=== PATIENT | female | born 1980 | race Caucasian/White ===

== ENCOUNTER 2017-08-27 09:31 | Inpatient (IN) | payer BC, OTHER ==
[2017-08-27] MEDS ORDERED: OBEPIDURAL* 250 ML EPIDURAL ONE (10:20)
[2017-08-27 10:35] LABS: ABS Basophils 0 10^3/ul (0-0.2); ABS Eosinophils 0 10^3/ul (0-0.6); ABS Lymphocytes 2.4 10^3/ul (1.0-4.8); ABS Monocytes 0.6 10^3/ul (0-0.8); ABS Neutrophils 6.2 10^3/ul (1.5-7.7); ABS Nucleated RBC 0 10^3/ul; Eosinophil % 0.5 % (0-6); Hematocrit 36 % (35-47); Lymphocyte % 25.9 % (25-47); Mean Corpuscular HGB Conc 34 g/dl (31-36); Mean Corpuscular Hemoglobin 29 pg (27-31); Mean Corpuscular Volume 85 fL (80-97); Mean Platelet Volume 9 um3 (7.4-10.4); Nucleated Red Blood Cells % 0; Platelet Count 207 10^3/ul (150-450); Red Blood Count 4.16 10^6/ul (4.0-5.4); Red Cell Distribution Width 14 % (10.5-15); White Blood Count 9.3 10^3/ul (3.5-10.8)
[2017-08-27] MEDS ORDERED: Phenylephrine IV* 40 MCG/ML 10 ML SYRINGE IV PUSH PRN (10:56)
[2017-08-27] MEDS ORDERED: EPHEDrine (Pressors)* 50 MG/ML VIAL IV PUSH PRN (10:56)
[2017-08-27] MEDS ORDERED: Sodium Citrate/Citric Acid* 15 ML UDC PO PRN (10:56)
[2017-08-27] MEDS ORDERED: Famotidine TAB* 20 MG PO PRN (10:56)
[2017-08-27] MEDS ORDERED: OBEPIDURAL* 250 ML EPIDURAL SCH (11:00)
[2017-08-27] MEDS ORDERED: Glycerin ADULT SUPP PR PRN (14:15)
[2017-08-27] MEDS ORDERED: Measles, Mumps,Rubella VACC* 0.5 ML/VIAL SUBCUT ONE (14:15)
[2017-08-27] MEDS ORDERED: Acetaminophen TAB* 325 MG PO PRN (14:15)
[2017-08-27] MEDS ORDERED: Dibucaine 1% 28.35 GM TUBE PR PRN (14:15)
[2017-08-27] MEDS ORDERED: Witch Hazel PAD* JAR TOPICAL PRN (14:15)
[2017-08-27] MEDS: Ibuprofen TAB* 600 MG PO PRN ×2 (14:53→21:45)
[2017-08-27] MEDS ORDERED: Oxytocin in LR* 20 UNITS/1,000 ML BAG IVPB ONE (14:56)
[2017-08-27] MEDS ORDERED: Oxytocin in LR* 20 UNITS/1,000 ML BAG IVPB SCH (15:03)
[2017-08-27] MEDS ORDERED: Misoprostol TAB* 200 MCG PR ONE (15:04)
[2017-08-27] MEDS: Simethicone TAB* 80 MG TAB.CHEW PO SCH ×2 (20:21→20:29)
[2017-08-27] MEDS: Docusate CAP* 100 MG PO SCH (20:29)
[2017-08-28 06:52] LABS: ABS Basophils 0 10^3/ul (0-0.2); ABS Eosinophils 0.1 10^3/ul (0-0.6); ABS Lymphocytes 2.9 10^3/ul (1.0-4.8); ABS Monocytes 0.5 10^3/ul (0-0.8); ABS Neutrophils 5.1 10^3/ul (1.5-7.7); ABS Nucleated RBC 0 10^3/ul; Eosinophil % 1.4 % (0-6); Hematocrit 28 % (35-47); Hemoglobin 9.6 g/dl (12.0-16.0); Lymphocyte % 33.5 % (25-47); Mean Corpuscular HGB Conc 34 g/dl (31-36); Mean Corpuscular Hemoglobin 29 pg (27-31); Mean Corpuscular Volume 86 fL (80-97); Mean Platelet Volume 9 um3 (7.4-10.4); Nucleated Red Blood Cells % 0; Platelet Count 166 10^3/ul (150-450); Red Blood Count 3.28 10^6/ul (4.0-5.4); Red Cell Distribution Width 14 % (10.5-15); White Blood Count 8.6 10^3/ul (3.5-10.8)
[2017-08-28] MEDS: Ibuprofen TAB* 600 MG PO PRN ×2 (07:31→14:50)
[2017-08-28] MEDS: Ferrous Gluconate TAB* 324 MG TAB PO SCH ×2 (09:01→21:18)
[2017-08-28] MEDS: Docusate CAP* 100 MG PO SCH ×3 (09:02→21:18)
[2017-08-29] MEDS: Ibuprofen TAB* 600 MG PO PRN ×2 (02:22→09:25)
[2017-08-29 08:27] VITALS: BP 117/63
[2017-08-29] MEDS: Ferrous Gluconate TAB* 324 MG TAB PO SCH (09:25)
[2017-08-29] MEDS: Docusate CAP* 100 MG PO SCH (09:25)
== END 2017-08-29 13:35 | disposition home or self-care (01) | DRG 560 ==
LOC: MCHOBOUT 09:31 → MCHOB 09:53
PROVIDERS: ADMIT Midwife; ATTEND Midwife
PROC: 10E0XZZ Delivery of Products of Conception, External Approach (ICD-10-PCS; principal; 2017-08-27)
PROC: 4A1HXCZ Monitoring of Products of Conception, Cardiac Rate, External Approach (ICD-10-PCS; 2017-08-27)
DX: O77.0 Labor and delivery complicated by meconium in amniotic fluid (principal); O71.89 Other specified obstetric trauma; Z3A.40 40 weeks gestation of pregnancy; Z37.0 Single live birth; O90.81 Anemia of the puerperium
CPT/HCPCS: 36415; 85025; 86850; 86900; 86901; 87651; A9270-GY

== ENCOUNTER 2018-11-04 13:10 | Emergency (ER) | payer BC ==
[2018-11-04 14:32] LABS: ABS Basophils 0.1 10^3/ul (0-0.2); ABS Eosinophils 0.1 10^3/ul (0-0.6); ABS Lymphocytes 3.2 10^3/ul (1.0-4.8); ABS Monocytes 0.4 10^3/ul (0-0.8); ABS Neutrophils 4.4 10^3/ul (1.5-7.7); ABS Nucleated RBC 0 10^3/ul; Eosinophil % 1.2 %; Hematocrit 35 % (33-41); Hemoglobin 11.9 g/dL (12.0-16.0); Lymphocyte % 39.3 %; Mean Corpuscular HGB Conc 34 g/dL (31-36); Mean Corpuscular Hemoglobin 29 pg (27-31); Mean Corpuscular Volume 87 fL (80-97); Mean Platelet Volume 8.3 fL (7.4-10.4); Nucleated Red Blood Cells % 0; Platelet Count 253 10^3/uL (150-450); Red Blood Count 4.06 10^6 /uL (3.70-4.87); Red Cell Distribution Width 13 % (10.5-15); White Blood Count 8.2 10^3/uL (3.5-10.8)
[2018-11-04 14:53] LABS: ALT 15 U/L (7-52); AST 22 U/L (13-39); Albumin 4.2 g/dL (3.2-5.2); Albumin/Globulin Ratio 1.5 (1-3); Alkaline Phosphatase 71 U/L (34-104); Anion Gap 7 mmol/L (2-11); BUN/Creatinine Ratio 21.9 (8-20); Blood Urea Nitrogen 16 mg/dL (6-24); CO2 Carbon Dioxide 25 mmol/L (22-32); Calcium 9.2 mg/dL (8.6-10.3); Chloride 107 mmol/L (101-111); EGFR African American 107.4 (>60); EGFR Non-African American 88.8 (>60); Globulin 2.8 g/dL (2-4); Glucose 90 mg/dL (70-100); Sodium 139 mmol/L (135-145)
[2018-11-04 14:56] LABS: Troponin I 0.01 ng/mL (<0.04)
[2018-11-04 15:00] LABS: HCG Pregnancy < 0.60 mIU/mL
[2018-11-04 15:49] VITALS: BP 110/75
[2018-11-04 15:57] LABS: INR 0.97 (0.82-1.09)
--- NOTE | 2018-11-05 04:56 | ED ---
Dizziness - HPI Summary HPI Summary: Patient is a 38-year-old otherwise healthy female presents to the ED with an episode of dizziness and weakness was last at approximate 10 seconds. She was driving at this time and pulled over. This dissipated approximately 10 seconds later an acute onset 2/10 headache with ringing to the right ear became present immediately following. This lasted another 30 minutes or so and also dissipated. She continues to have some right ear pain, but this is minimal. Denies any hearing loss bilaterally. She is concerned as she had an episode of anisocoria a few weeks ago. She had followed up with her PCP, however she states "nothing was found." They had not been a CT scan. She is requesting this on today's visit. She currently feels well, is asymptomatic, denies any CPR or SOB. Denies any fevers, sweats, chills. She has not been sick recently. She has no significant past medical history. Denies cardiac hx. She endorses a fam hx of brain tumor/dementia. - History Of Current Complaint Chief Complaint: EDDizziness Stated Complaint: LIGHTHEADED/DIZZINESS/RT SIDED EAR PAIN PER PT Time Seen by Provider: 11/04/18 13:46 Hx Obtained From: Patient Onset/Duration: Still Present Timing: Constant Severity Initially: Mild Severity Currently: Mild Aggravating Factor(s): Nothing Alleviating Factor(s): Nothing Associated Signs And Symptoms: Positive: Negative - Risk Factors Cardiac Risk Factors: Negative CVA Risk Factor: Negative - Allergies/Home Medications Allergies/Adverse Reactions: Allergies Allergy/AdvReac Type Severity Reaction Status Date / Time No Known Allergies Allergy Verified 11/04/18 13:14 Home Medications: Home Medications Norethindrone 0.35 mg PO DAILY 11/04/18 [History Confirmed 11/04/18] PMH/Surg Hx/FS Hx/Imm Hx Previously Healthy: Yes Endocrine/Hematology History: Denies: Hx Diabetes, Hx Thyroid Disease Cardiovascular History: Denies: Hx Hypertension Respiratory History: Denies: Hx Asthma, Hx Chronic Obstructive Pulmonary Disease (COPD) GI History: Denies: Hx Ulcer Psychiatric History: Reports: Hx Depression - Immunization History Hx Pertussis Vaccination: No Immunizations Up to Date: Yes Infectious Disease History: No Infectious Disease History: Denies: Hx Hepatitis, Hx Human Immunodeficiency Virus (HIV), Traveled Outside the [place] in Last 30 Days - Social History Occupation: Employed Full-time Lives: With Family Alcohol Use: None Hx Substance Use: No Substance Use Type: Reports: None Hx Tobacco Use: No Smoking Status (MU): Never Smoked Tobacco Have You Smoked in the Last Year: No Review of Systems Constitutional: Negative Negative: Fever, Chills, Fatigue, Skin Diaphoresis - and was read by Negative: Palpitations, Chest Pain Negative: Shortness Of Breath, Cough Negative: Abdominal Pain, Vomiting, Diarrhea, Nausea Positive: no symptoms reported. Negative: see HPI Negative: Arthralgia, Myalgia Skin: Negative Positive: Headache, Weakness All Other Systems Reviewed And Are Negative: Yes Physical Exam Triage Information Reviewed: Yes Vital Signs On Initial Exam: Initial Vitals Temp Pulse Resp BP Pulse Ox 98.6 F 78 15 132/91 99 11/04/18 13:12 11/04/18 13:12 11/04/18 13:12 11/04/18 13:12 11/04/18 13:12 Vital Signs Reviewed: Yes Appearance: Positive: Well-Appearing, Well-Nourished Skin: Positive: Warm, Skin Color Reflects Adequate Perfusion Head/Face: Positive: Normal Head/Face Inspection Eyes: Positive: EOMI, Conjunctiva Clear Neck: Positive: Supple, No Lymphadenopathy Respiratory/Lung Sounds: Positive: Clear to Auscultation, Breath Sounds Present Cardiovascular: Positive: RRR, Pulses are Symmetrical in both Upper and Lower Extremities Musculoskeletal: Positive: Normal, Strength/ROM Intact Neurological: Positive: Sensory/Motor Intact, Alert, Oriented to Person Place, Time Psychiatric: Positive: Normal, Affect/Mood Appropriate AVPU Assessment: Alert Diagnostics - Vital Signs Vital Signs Temp Pulse Resp BP Pulse Ox 11/04/18 16:08 98.4 F 78 16 110/75 99 11/04/18 15:44 65 15 110/75 98 11/04/18 15:14 65 17 111/71 99 11/04/18 15:00 71 29 99 11/04/18 14:44 65 118/78 98 11/04/18 14:43 65 99 11/04/18 13:12 98.6 F 78 15 132/91 99 - Laboratory Lab Results: Lab Results 11/04/18 11/04/18 11/04/18 Range/Units 14:22 14:22 14:22 WBC 8.2 (3.5-10.8) 10^3/uL RBC 4.06 (3.70-4.87) 10^6 /uL Hgb 11.9 L (12.0-16.0) g/dL Hct 35 (33-41) % MCV 87 (80-97) fL MCH 29 (27-31) pg MCHC 34 (31-36) g/dL RDW 13 (10.5-15) % Plt Count 253 (150-450) 10^3/uL MPV 8.3 (7.4-10.4) fL Neut % (Auto) 54.1 % Lymph % (Auto) 39.3 % [place] % (Auto) 4.5 % Eos % (Auto) 1.2 % Baso % (Auto) 0.9 % Absolute Neuts (auto) 4.4 (1.5-7.7) 10^3/ul Absolute Lymphs (auto) 3.2 (1.0-4.8) 10^3/ul Absolute Monos (auto) 0.4 (0-0.8) 10^3/ul Absolute Eos (auto) 0.1 (0-0.6) 10^3/ul Absolute Basos (auto) 0.1 (0-0.2) 10^3/ul Absolute Nucleated RBC 0 10^3/ul Nucleated RBC % 0 INR (Anticoag Therapy) 0.97 (0.82-1.09) Sodium 139 (135-145) mmol/L Potassium 4.0 (3.5-5.0) mmol/L Chloride 107 (101-111) mmol/L Carbon Dioxide 25 (22-32) mmol/L Anion Gap 7 (2-11) mmol/L BUN 16 (6-24) mg/dL Creatinine 0.73 (0.51-0.95) mg/dL Est GFR ( Amer) 107.4 (>60) Est GFR (Non-Af Amer) 88.8 (>60) BUN/Creatinine Ratio 21.9 H (8-20) Glucose 90 (70-100) mg/dL Lactic Acid (0.5-2.0) mmol/L Calcium 9.2 (8.6-10.3) mg/dL Total Bilirubin 0.30 (0.2-1.0) mg/dL AST 22 (13-39) U/L ALT 15 (7-52) U/L Alkaline Phosphatase 71 (34-104) U/L Troponin I 0.01 (<0.04) ng/mL Total Protein 7.0 (6.4-8.9) g/dL Albumin 4.2 (3.2-5.2) g/dL Globulin 2.8 (2-4) g/dL Albumin/Globulin Ratio 1.5 (1-3) Beta HCG, Quant < 0.60 mIU/mL 11/04/18 Range/Units 14:22 WBC (3.5-10.8) 10^3/uL RBC (3.70-4.87) 10^6 /uL Hgb (12.0-16.0) g/dL Hct (33-41) % MCV (80-97) fL MCH (27-31) pg MCHC (31-36) g/dL RDW (10.5-15) % Plt Count (150-450) 10^3/uL MPV (7.4-10.4) fL Neut % (Auto) % Lymph % (Auto) % [place] % (Auto) % Eos % (Auto) % Baso % (Auto) % Absolute Neuts (auto) (1.5-7.7) 10^3/ul Absolute Lymphs (auto) (1.0-4.8) 10^3/ul Absolute Monos (auto) (0-0.8) 10^3/ul Absolute Eos (auto) (0-0.6) 10^3/ul Absolute Basos (auto) (0-0.2) 10^3/ul Absolute Nucleated RBC 10^3/ul Nucleated RBC % INR (Anticoag Therapy) (0.82-1.09) Sodium (135-145) mmol/L Potassium (3.5-5.0) mmol/L Chloride (101-111) mmol/L Carbon Dioxide (22-32) mmol/L Anion Gap (2-11) mmol/L BUN (6-24) mg/dL Creatinine (0.51-0.95) mg/dL Est GFR ( Amer) (>60) Est GFR (Non-Af Amer) (>60) BUN/Creatinine Ratio (8-20) Glucose (70-100) mg/dL Lactic Acid 0.6 (0.5-2.0) mmol/L Calcium (8.6-10.3) mg/dL Total Bilirubin (0.2-1.0) mg/dL AST (13-39) U/L ALT (7-52) U/L Alkaline Phosphatase (34-104) U/L Troponin I (<0.04) ng/mL Total Protein (6.4-8.9) g/dL Albumin (3.2-5.2) g/dL Globulin (2-4) g/dL Albumin/Globulin Ratio (1-3) Beta HCG, Quant mIU/mL Result Diagrams: 11/04/18 14:22 11/04/18 14:22 Lab Statement: Any lab studies that have been ordered have been reviewed, and results considered in the medical decision making process. Dizzy Course/Dx - Course Course Of Treatment: During the course of treatment, the patient's evaluated for acute onset dizziness and lightheadedness which lasted approximately 10 seconds followed by headache and right ear pain. All symptoms dissipated prior to arrival. She is concerned as she had a episode of Ancef chemo and has a family history of brain aneurysm/tumor/dementia. She is currently asymptomatic. Discussed the treatment options with the patient. She is asymptomatic, I discussed this is likely a low BP or low blood sugar or other etiology. Patient was like to continue with labs and a CT scan she had one episode of anisicoria a few weeks ago. Labs obtained and are WNL. CT brain obtained and is WNL. Patient states at this point she is feels she is comfortable with going, and will follow-up with her PCP. I have also given her referral to neurologist if any symptoms return or worsen. - Diagnoses Differential Diagnosis/HQI/PQRI: Metabolic Abnormality, Vasovagal Reaction Provider Diagnoses: Headache, Dizziness Discharge - Sign-Out/Discharge Documenting (check all that apply): Patient Departure Patient Received Moderate/Deep Sedation with Procedure: No - Discharge Plan Condition: Stable Disposition: HOME Patient Education Materials: Acute Headache (ED), Dizziness (ED) Referrals: Valentino Ramon MD [Medical Doctor] - Raheem Coleman MD [Primary Care Provider] - Additional Instructions: Please follow-up with Dr. Ramon if you develop any worsening or changing symptoms Tylenol or ibuprofen may be used for any discomfort - Billing Disposition and Condition Condition: STABLE Disposition: Home
== END 2018-11-04 16:08 | disposition home or self-care (01) ==
LOC: ED 13:10
DX: R42 Dizziness and giddiness (principal); R51 Headache
CPT/HCPCS: 36415; 70450; 80053; 83605; 84484; 84702; 85025; 85610; 93005; 99282